=== PATIENT | male | born 1955 | race Caucasian/White ===

== ENCOUNTER 2022-10-14 06:46 | Inpatient (IN) | payer MEDICARE, OTHER ==
[~2022-10-14] VITALS: Ht 175.3 cm; Wt 99.4 kg
[2022-10-14 07:32] LABS: BASOPHILS % (AUTO) 0.2 % (0.0-2.0); EOSINOPHILS % (AUTO) 2.9 % (1.0-6.0); HEMATOCRIT 35.3 % (41-53); HEMOGLOBIN 11.1 g/dL (13.5-17.5); LYMPHOCYTES % (AUTO) 21.9 % (22.0-44.0); MEAN CORPUSCULAR HEMOGLOBIN 28.3 pg (26.0-34.0); MEAN CORPUSCULAR HGB CONC 31.5 G/dL (31.0-37.0); MEAN CORPUSCULAR VOLUME 90 fL (80-100); MONOCYTES # (AUTO) 0.4 K/uL (0.1-1.0); MONOCYTES % (AUTO) 7.8 % (2.0-9.0); NEUTROPHILS # (AUTO) 3.2 K/uL (1.8-7.7); NEUTROPHILS % (AUTO) 67.2 % (40.0-70.0); PLATELET COUNT (AUTO) 106 K/uL (150-450); RED BLOOD CELL COUNT(AUTO) 3.93 MIL/uL (4.50-5.90); RED CELL DISTRIBUTION WIDTH 15.2 % (11.5-14.5)
[2022-10-14] MEDS ORDERED: ASPIRIN 325 MG TABLET PO ONE (07:45)
[2022-10-14] MEDS ORDERED: BUMETANIDE 0.25 MG/ML 4 ML VIAL IVP ONE (07:45)
[2022-10-14 07:54] LABS: COVID AG,FIA SOURCE NASOPHARYNGEAL
[2022-10-14 07:56] LABS: LACTIC ACID 1.6 mmol/L (0.4-2.0)
[2022-10-14 08:23] LABS: CREATININE 2.48 mg/dL (0.60-1.30); POTASSIUM 3.7 mmol/L (3.5-5.1)
[2022-10-14 08:28] LABS: ALBUMIN 3.3 g/dL (3.4-5.0); BILIRUBIN,TOTAL 0.4 mg/dL (0.1-1.0); TOTAL PROTEIN, SERUM 6.6 g/dL (6.4-8.2)
[2022-10-14] MEDS ORDERED: ACETAMINOPHEN 325 MG TABLET PO PRN (09:30)
[2022-10-14] MEDS ORDERED: ONDANSETRON HCL 4 MG/2 ML VIAL IVP PRN (09:30)
[2022-10-14] MEDS ORDERED: BISACODYL 10 MG RECTAL RECTAL SUPPOSITORY PR PRN (09:30)
[2022-10-14] MEDS ORDERED: FUROSEMIDE 40 MG/4 ML VIAL IVP ONE (10:00)
[2022-10-14] MEDS ORDERED: DEXTROSE 50%-WATER 25 GM/50 ML SYRINGE IVP PRN (10:30)
[2022-10-14] MEDS ORDERED: INSULIN LISPRO 100 UNITS/ML SQ PRN (10:30)
[2022-10-14 13:07] LABS: APPEARANCE,URINE CLEAR (CLEAR); BILIRUBIN,URINE NEGATIVE (NEGATIVE); GLUCOSE, URINE (UA) NEGATIVE (NEGATIVE); KETONES,URINE NEGATIVE (NEGATIVE); LEUKOCYTE ESTERASE ,URINE NEGATIVE (NEGATIVE); NITRATE,URINE NEGATIVE (NEGATIVE); OCCULT BLOOD,URINE NEGATIVE (NEGATIVE); PH,URINE 5.5 (5.0-8.0); PROTEIN,URINE 100-200,SEE CONFIRM mg/dL (NEGATIVE); SPECIFIC GRAVITIY, URINE 1.008 (1.003-1.030); UROBILINOGEN,URINE <=1.0 mg/dL (<=1.0)
[2022-10-14 13:30] LABS: SULFOSALICYLIC ACID,URINE 2+ (Negative)
[2022-10-14 13:31] LABS: BACTERIA,URINE Rare /HPF (None Seen); RBC,URINE 0-2 /HPF (0-2); SQUAMOUS EPITHELIAL CELL,UR None Seen /LPF (None Seen); WBC,URINE 0-2 /HPF (0-5)
[2022-10-14] MEDS: HEPARIN SODIUM,PORCINE 5,000 UNITS/ML VIAL SQ SCH (15:11)
[2022-10-14 21:14] VITALS: BP 181/104
[2022-10-14] MEDS: DOCUSATE SODIUM 100 MG CAPSULE PO SCH (21:33)
[2022-10-14] MEDS: LOSARTAN POTASSIUM 25 MG TABLET PO SCH (21:33)
[2022-10-15] VITALS (8 sets, daily range): BP systolic 157–180; BP diastolic 82–101
[2022-10-15] MEDS: HEPARIN SODIUM,PORCINE 5,000 UNITS/ML VIAL SQ SCH ×3 (01:00→17:01)
[2022-10-15 07:05] LABS: CALCIUM, TOTAL 7.4 mg/dL (8.8-10.5); CREATININE 2.17 mg/dL (0.60-1.30); POTASSIUM 3.2 mmol/L (3.5-5.1)
[2022-10-15 07:16] LABS: GLUCOMETER DEV NAME(LOC) 5S.2B; GLUCOSE,POINT OF CARE 143 MG/DL (70-110)
[2022-10-15 07:17] LABS: GLUCOMETER DEV NAME(LOC) 5S.2B; GLUCOSE,POINT OF CARE 106 MG/DL (70-110)
[2022-10-15] MEDS ORDERED: METOPROLOL SUCCINATE 25 MG ER TABLET PO SCH (09:00)
[2022-10-15] MEDS: ASPIRIN 81 MG CHEWABLE TABLET PO SCH (09:21)
[2022-10-15] MEDS: DOCUSATE SODIUM 100 MG CAPSULE PO SCH ×2 (09:21→20:38)
[2022-10-15] MEDS: ATORVASTATIN CALCIUM 20 MG TABLET PO SCH (09:21)
[2022-10-15] MEDS: FAMOTIDINE 20 MG TABLET PO SCH (09:22)
[2022-10-15] MEDS: LOSARTAN POTASSIUM 25 MG TABLET PO SCH ×2 (09:22→20:37)
[2022-10-15] MEDS: BUMETANIDE 0.25 MG/ML 4 ML VIAL IVP SCH (09:23)
[2022-10-15] MEDS: AmLODIPine BESYLATE 5 MG TABLET PO SCH (14:12)
[2022-10-15] MEDS: HydrALAZINE HCL 25 MG TABLET PO SCH (20:37)
[2022-10-15] MEDS: ISOSORBIDE DINITRATE 20 MG TABLET PO SCH (20:38)
[2022-10-16 00:08] VITALS: BP 175/90
[2022-10-16] MEDS: HEPARIN SODIUM,PORCINE 5,000 UNITS/ML VIAL SQ SCH ×3 (00:50→16:00)
[2022-10-16 02:12] LABS: GLUCOMETER DEV NAME(LOC) 5S.1B; GLUCOSE,POINT OF CARE 123 MG/DL (70-110)
[2022-10-16 03:31] LABS: GLUCOMETER DEV NAME(LOC) 5N.1C; GLUCOSE,POINT OF CARE 171 MG/DL (70-110)
[2022-10-16 03:32] LABS: GLUCOMETER DEV NAME(LOC) 5N.1C; GLUCOSE,POINT OF CARE 138 MG/DL (70-110)
[2022-10-16 04:17] VITALS: BP 167/91
[2022-10-16 06:52] LABS: BASOPHILS % (AUTO) 0.6 % (0.0-2.0); EOSINOPHILS % (AUTO) 4.5 % (1.0-6.0); HEMOGLOBIN 10.5 g/dL (13.5-17.5); LYMPHOCYTES % (AUTO) 19.8 % (22.0-44.0); MEAN CORPUSCULAR HEMOGLOBIN 28.4 pg (26.0-34.0); MEAN CORPUSCULAR HGB CONC 31.9 G/dL (31.0-37.0); MEAN CORPUSCULAR VOLUME 89 fL (80-100); MONOCYTES # (AUTO) 0.4 K/uL (0.1-1.0); MONOCYTES % (AUTO) 7.7 % (2.0-9.0); NEUTROPHILS # (AUTO) 3.3 K/uL (1.8-7.7); NEUTROPHILS % (AUTO) 67.4 % (40.0-70.0); PLATELET COUNT (AUTO) 94 K/uL (150-450); RED CELL DISTRIBUTION WIDTH 15.2 % (11.5-14.5)
[2022-10-16 07:33] LABS: ALBUMIN 3.2 g/dL (3.4-5.0); BILIRUBIN,TOTAL 0.6 mg/dL (0.1-1.0); CALCIUM, TOTAL 7.5 mg/dL (8.8-10.5); CREATININE 2.05 mg/dL (0.60-1.30); POTASSIUM 3.4 mmol/L (3.5-5.1); TOTAL PROTEIN, SERUM 6.5 g/dL (6.4-8.2)
[2022-10-16 07:51] VITALS: BP 164/95
[2022-10-16] MEDS ORDERED: METOPROLOL SUCCINATE 50 MG ER TABLET PO SCH (09:00)
[2022-10-16] MEDS: FAMOTIDINE 20 MG TABLET PO SCH (09:19)
[2022-10-16] MEDS: DOCUSATE SODIUM 100 MG CAPSULE PO SCH (09:19)
[2022-10-16] MEDS: ATORVASTATIN CALCIUM 20 MG TABLET PO SCH (09:19)
[2022-10-16] MEDS: LOSARTAN POTASSIUM 25 MG TABLET PO SCH (09:19)
[2022-10-16] MEDS: BUMETANIDE 0.25 MG/ML 4 ML VIAL IVP SCH (09:19)
[2022-10-16] MEDS: ASPIRIN 81 MG CHEWABLE TABLET PO SCH (09:19)
[2022-10-16] MEDS: AmLODIPine BESYLATE 5 MG TABLET PO SCH (09:19)
[2022-10-16] MEDS: HydrALAZINE HCL 25 MG TABLET PO SCH ×2 (09:20→17:24)
[2022-10-16] MEDS: ISOSORBIDE DINITRATE 20 MG TABLET PO SCH ×2 (09:20→17:24)
[2022-10-16 09:21] LABS: GLUCOMETER DEV NAME(LOC) 5S.2B; GLUCOSE,POINT OF CARE 106 MG/DL (70-110)
[2022-10-16 12:01] VITALS: BP 160/92
[2022-10-16] MEDS ORDERED: AMLO-258 PO (12:34)
[2022-10-16] MEDS ORDERED: BUME1TAB34 PO (12:35)
[2022-10-16] MEDS ORDERED: METO-558 PO (12:35)
[2022-10-16] MEDS ORDERED: LOSA-381 PO (12:36)
[2022-10-16] MEDS ORDERED: POTASSIUM CHLORIDE 10 MEQ ER TABLET PO ONE (12:45)
[2022-10-16 19:11] LABS: GLUCOMETER DEV NAME(LOC) 5S.2B; GLUCOSE,POINT OF CARE 110 MG/DL (70-110)
[2022-10-17 01:46] LABS: GLUCOMETER DEV NAME(LOC) 5S.1B; GLUCOSE,POINT OF CARE 121 MG/DL (70-110)
== END 2022-10-16 18:05 | disposition home or self-care (01) | DRG 291 ==
LOC: EMS 06:47 → AHU 09:17 → 5S 20:45
PROVIDERS: ADMIT Internal Medicine; ATTEND Internal Medicine
DX: I13.0 Hypertensive heart and chronic kidney disease with heart failure and stage 1 through stage 4 chronic kidney disease, or unspecified chronic kidney disease (principal); I50.23 Acute on chronic systolic (congestive) heart failure; N17.9 Acute kidney failure, unspecified; N18.4 Chronic kidney disease, stage 4 (severe); E66.9 Obesity, unspecified; E11.40 Type 2 diabetes mellitus with diabetic neuropathy, unspecified; E11.22 Type 2 diabetes mellitus with diabetic chronic kidney disease; I25.10 Atherosclerotic heart disease of native coronary artery without angina pectoris; E78.5 Hyperlipidemia, unspecified; I25.5 Ischemic cardiomyopathy; Z20.822 Contact with and (suspected) exposure to COVID-19; Z79.899 Other long term (current) drug therapy; Z83.3 Family history of diabetes mellitus; Z95.1 Presence of aortocoronary bypass graft; Z68.32 Body mass index [BMI] 32.0-32.9, adult
CPT/HCPCS: 71045; 80048; 80053; 81001; 81002; 82962; 83605; 83690; 83880; 84484; 85025; 93005; 93306; 99285; J1644; J1940; J3490; 36415-L1; 36415-TC

== ENCOUNTER 2024-02-11 14:24 | Emergency (ER) | payer MEDICARE, OTHER ==
[~2024-02-11] VITALS: Ht 172.7 cm; Wt 70.9 kg
[~2024-02-11 14:24] MED LIST: AMLO-258 PO; BUME1TAB50 PO; LOSA-381 PO; METO-325 PO
[2024-02-11 14:40] VITALS: TEMP 98
[2024-02-11] MEDS ORDERED: SACU1TAB PO (14:42)
[2024-02-11] MEDS ORDERED: EMPA10TA3 PO (14:42)
[2024-02-11] MEDS ORDERED: METO2.5T2 PO (14:42)
[2024-02-11] MEDS ORDERED: LEVO25TA9 PO (14:42)
[2024-02-11] MEDS: PERTUSS(ACELL),DIPH,TET/PF 0.5 ML SYRINGE [ADULT] IM. ONE (16:12)
[2024-02-11 16:20] VITALS: BP 108/72; PULSE 71; RESP 18
== END 2024-02-11 16:48 | disposition home or self-care (01) ==
LOC: EMS 14:24
DX: S51.811A Laceration without foreign body of right forearm, initial encounter (principal); E11.9 Type 2 diabetes mellitus without complications; W20.8XXA Other cause of strike by thrown, projected or falling object, initial encounter; Y93.89 Activity, other specified; Y92.89 Other specified places as the place of occurrence of the external cause; Y99.8 Other external cause status
CPT/HCPCS: 90471; 90715; 99283